=== PATIENT | female | born 1985 | race Caucasian/White ===

== ENCOUNTER → 2019-11-22 | Outpatient (CLI) | payer BC ==
[2019-11-22 16:35] LABS: URINE AMPHETAMINES < 1000 (1000ng/ml); URINE BARBITURATES < 200 (200ng/ml); URINE BENZODIAZEPINES < 200 (200ng/ml); URINE CANNABINOIDS (THC) < 50 (50ng/ml); URINE COCAINE < 300 (300ng/ml); URINE METHADONE < 300 (300ng/ml); URINE OPIATES < 300 (300ng/ml)
[2019-11-22 16:36] LABS: URINE PHENCYCLIDINE < 25 (25ng/ml)
== END | disposition home or self-care (01) ==
LOC: LAB 16:00
PROVIDERS: Internal Medicine
DX: F11.20 Opioid dependence, uncomplicated (principal)

== ENCOUNTER → 2020-10-23 | Outpatient (CLI) | payer OTHER | END | disposition home or self-care (01) | LOC: MRI 13:00 | PROVIDERS: ATTEND Family Medicine | DX: G44.319 Acute post-traumatic headache, not intractable (principal); G43.109 Migraine with aura, not intractable, without status migrainosus ==